=== PATIENT | female | born 1965 | race Caucasian/White ===

== ENCOUNTER 2016-06-05 21:11 | Inpatient (IN) | payer OTHER ==
--- NOTE | ~2016-06-05 | CT71 ---
[facility] A Service of [facility] RADIOLOGY TEXT RESULTS PATIENT: NILSA ODELL LOCATION: CICCU3 CICCU3-20 : 67 UNIT #: [id number] AGE: [address]: Royer Regan MD SEX: F ORDER DR: [id number] [facility] [address] [facility]. [place], [place] [address] [id number] I MR#: [id number] Acc #: [id number] NAME: NILSA ODELL. : 1965 SEX: F STUDY DATE/TIME: 06/05/2016 22:13 UNIT: CEDOF ROOM: [id number] STUDY DESCRIPTION: CT Head Wo Contrast Attending Physician: Royer Regan M.D. Ordering Physician: Walker Schmitt M.D. Primary Care Physician: Bill Garcia M.D. MEDICAL IMAGING REPORT This report is preliminary unless electronic signature is present EXAM CT brain without contrast HISTORY Loss of consciousness. Acute onset. TECHNIQUE This CT exam was performed with one or more of the following radiation dose reduction techniques: automatic exposure control, adjustment of mA and/or kV according to patient size, and iterative reconstruction. FINDINGS CT brain without contrast is partly limited by motion. No intracranial hemorrhage or mass is identified. No midline shift or ventricular dilatation. There is subtle loss of armenta-white differentiation, raising suspicion of early changes of anoxic brain injury and cerebral edema, although this is not definitive on this exam. Consider short-term followup CT brain and close clinical monitoring. IMPRESSION Although the examination is partly limited by motion, there are findings suspicious for cerebral edema and possible anoxic brain injury with apparent subtle loss of armenta-white differentiation and at least mild generalized sulcal effacement. No intracranial hemorrhage is identified. Dictated by... Larry Manley M.D. THIS IS AN ELECTRONICALLY VERIFIED REPORT Larry Manley M.D. at 06/07/2016 12:06 AM DFL/radha [facility] A Service [facility] RADIOLOGY TEXT RESULTS PATIENT: NILSA ODELL LOCATION: CICCU3 CICCU3-20 : 67 UNIT #: [id number] AGE: [address]: Royer Regan MD SEX: F ORDER DR: TD: 06/06/2016 01:32 JOB #: [id number] MEDICAL IMAGING REPORT COPY
--- NOTE | ~2016-06-05 | CO ---
Unit #: [id number] #: [id number] Patient: NILSA ODELL [id number] [address] [place], [place] [address] [id number] I MR#: [id number] NAME: NILSA ODELL. ROOM: [facility] Age: 50 Sex: F Admission Date: 06/05/2016 : 1965 Attending Physician: Royer Regan M.D. Primary Care Physician: Bill Garcia M.D. CONSULTATION REPORT REASON FOR CONSULTATION Intensive care unit management. HISTORY OF PRESENT ILLNESS This is a 50-year-old female with past medical history significant for hypertension and recently diagnosed with congestive heart failure who presented to the emergency room as a cardiac arrest. Per daughter who is at bedside, she stated that she was with her mom watching TV when all of a sudden her mom started making weird noises and sounds and she was gasping for air. The daughter immediately called EMS who advised her to put her mom on the floor and start CPR. The daughter stated that CPR was initiated immediately until EMS arrived. EMS was there is about ten minutes and then the patient was found to be in a V-tach arrest. The patient was shocked, to my knowledge twice and resuscitated and arrived and she was admitted to our emergency room where she was resuscitated for about ten minutes. The patient, currently, is completely unresponsive. No painful stimuli, no gag or cough reflex. Daughter stated that the patient was at [place] two days ago for some palpitations and she was placed on holter monitor. Everything was fine, per report. The patient isn't on oxygen or CPAP at home. She takes only some blood pressure medicine and anxiety medicine. PAST MEDICAL HISTORY 1. Congestive heart failure. 2. Hypertension. 3. Anxiety. 4. Depression. 5. Morbid obesity. PAST SURGICAL HISTORY Unavailable. SOCIAL HISTORY The patient doesn't smoke, no history of alcohol or drug abuse. ALLERGIES No known drug allergies. FAMILY HISTORY Noncontributory. Unit #: [id number] #: [id number] Patient: NILSA ODELL REVIEW OF SYSTEMS Unable to obtain from the patient. PHYSICAL EXAMINATION GENERAL: The patient is very obese, on the vent. HEENT: Atraumatic and normocephalic. RICHA. Extraocular muscles are intact. NECK: Supple. No jugular venous distention. No lymphadenopathy. CHEST: Decreased breath sounds bilaterally. HEART: S1 and S2. No murmurs, gallops, or rubs. ABDOMEN: Soft and nontender. Bowel sounds are positive. No hepatosplenomegaly. EXTREMITIES: No edema or cyanosis. SKIN: No rashes. [employer]: The patient is on the vent, off sedation, she is completely unresponsive even to painful stimuli. DIAGNOSTIC STUDIES Labs and other tests are unavailable at this point, as the patient is still in the early workup by the emergency room physician. ASSESSMENT 1. Acute hypoxic respiratory failure. 2. Status post V-tach arrest. 3. Rule out anoxic brain injury. 4. Morbid obesity. 5. Shock. PLAN 1. The patient is critical and will be continued on the vent. 2. Stat CT head to rule out anoxic brain injury. 3. Continue IV pressors and IV fluids pending lactic acid and other labs. 4. If CT head is negative for anoxic brain injury the patient will be a candidate for hypothermia protocol. 5. Lovenox full treatment dose pending cardiac evaluation. 6. GI prophylaxis. Critical care time spent on this patient was 45 minutes. Dictated by... Juan J Hawthorne M.D. EA/nicky TD: 06/06/2016 15:05 JOB #: [id number] Unit #: [id number] #: [id number] Patient: NILSA ODELL CONSULTATION REPORT X JUAN J ALTAMIRANO MD CONSULTATION REPORT
--- NOTE | ~2016-06-05 | EKG ---
PATIENT: NILSA ODELL UNIT #: [id number] Ventricular Rate: 129 BPM Atrial Rate: 129 BPM P-R Interval: 166 ms QRS Duration: 104 ms Q-T Interval: 340 ms QTC Calculation(Bezet): 498 ms P Ethel: 14 degrees Calculated R Ethel: -34 degrees Calculated T Ethel: -139 degrees Diagnosis Line: Sinus tachycardia Diagnosis Line: Left axis deviation Diagnosis Line: Marked ST abnormality, possible anterolateral Diagnosis Line: subendocardial injury Diagnosis Line: Abnormal ECG Diagnosis Line: No previous ECGs available Diagnosis Line: Confirmed by BASSEM RESTREPO MD ([id number]) on Diagnosis Line: 06/06/2016 10:50:56 PM INTERPRETING MD: JANEY
--- NOTE | ~2016-06-05 | HP ---
Unit #: [id number] #: [id number] Patient: NILSA ODELL [id number] [address] [place], [place] [address] [id number] I MR#: [id number] NAME: NILSA ODELL. ROOM: [facility] Age: 50 Sex: F Admission Date: 06/05/2016 : 1965 Attending Physician: Royer Regan M.D. Primary Care Physician: Bill Garcia M.D. HISTORY AND PHYSICAL CHIEF COMPLAINT Cardiopulmonary arrest. HISTORY OF PRESENT ILLNESS This is a 50-year-old female with a past medical history of hypertension, history of recently diagnosed congestive heart failure. She, also, two days ago she had a visit to [place] for palpitations. She was sitting with her daughter watching TV when all of a sudden she started gasping for air and become unresponsive. Family started CPR and family called the EMS. On arrival of EMS she was found to be in V-tach and V-fib. She was given cardioversion, started on oxygen and amiodarone, and eventually she got pulse and intubated and brought to the emergency room. She is on the vent and then on Levophed. PAST MEDICAL HISTORY 1. History of hypertension. 2. History of recently diagnosed congestive heart failure. 3. History of palpitations. PAST SURGICAL HISTORY Unknown. HOME MEDICATIONS Does not know the home medications. ALLERGIES Information not available at this time. PHYSICAL EXAMINATION GENERAL: Middle-aged female who is intubated on the vent. She is alert, awake, and oriented x3, comfortable, not in any distress. VITAL SIGNS: Current vitals are the following, heart rate 101, respiratory rate 20, and blood pressure 120/78. LUNGS: Clear to auscultation. HEART: S1 and S2. Regular rate and rhythm. ABDOMEN: Soft, obese. EXTREMITIES: Inspection normal. No cyanosis. No clubbing. No edema. DIAGNOSTIC STUDIES LABORATORY: Laboratory workup is the following, sodium 138, potassium 4.4, chloride 105, glucose 266, BUN 12, creatinine 1 and LFT within normal limits. Magnesium 2.4, BNP is 147, INR is 1. CBC, white count 16.8, hemoglobin 11.4, hematocrit 36, platelets 351. Unit #: [id number] #: [id number] Patient: NILSA ODELL IMAGING: Chest x-ray negative infiltrate. CT head shows cerebral edema, possible anoxic brain injury. ASSESSMENT/PLAN 1. Cardiopulmonary arrest. 2. Anoxic brain injury. Will admit the patient to intensive care unit, pulmonary department already seen the patient. The patient will be started on Zosyn, Protonix, Levophed drip to keep the blood pressure more than 65, mean artery pressure. 3. History of hypertension. 4. History of recently diagnosed congestive heart failure. 5. History of recent visit to [place] for palpitations. 6. DVT prophylaxis on Lovenox. 7. Poor prognosis. Dictated by Alfredo Herman TD: 06/06/2016 08:25 JOB #: [id number] HISTORY AND PHYSICAL X X HISTORY AND PHYSICAL
--- NOTE | ~2016-06-05 | CR72 ---
[facility] A Service of [facility] RADIOLOGY TEXT RESULTS PATIENT: NILSA DOELL LOCATION: [facility] : 67 UNIT #: [id number] AGE: [address]: Royer Regan MD SEX: F ORDER DR: [id number] [facility] [address] [facility]. [place], [place] [address] [id number] I MR#: [id number] Acc #: [id number] NAME: NILSA ODELL : 1965 SEX: F STUDY DATE/TIME: 06/05/2016 21:58 UNIT: [facility] ROOM: [id number] STUDY DESCRIPTION: CR Chest Single View Portable Attending Physician: Royer Regan M.D. Ordering Physician: Walker Schmitt M.D. Primary Care Physician: Bill Garcia M.D. MEDICAL IMAGING REPORT This report is preliminary unless electronic signature is present EXAM Portable chest HISTORY Cardiopulmonary arrest. FINDINGS ETT tip is 2 cm above the haley. Low lung volumes. Cardiac size and pulmonary vascularity are likely within normal limits. Gaseous distension of the partly visualized stomach in the left upper quadrant. No infiltrates or effusions are identified. IMPRESSION 1. ETT tip is 2 cm above the haley. 2. Low lung volumes accentuate the cardiac size, but no pulmonary infiltrates are identified. No gaseous distension of the partly visualized stomach. Dictated by... Larry Manley M.D. THIS IS AN ELECTRONICALLY VERIFIED REPORT Larry Manley M.D. at 06/07/2016 12:06 AM KEERTHI/radha TD: 06/06/2016 00:57 JOB #: [id number] MEDICAL IMAGING REPORT COPY
--- NOTE | ~2016-06-05 | CR72 ---
[facility] A Service of [facility] & [facility] RADIOLOGY TEXT RESULTS PATIENT: NILSA ODELL LOCATION: [address]-20 : [birth year] UNIT #: [id number] AGE: [address]: Royer Regan MD SEX: F ORDER DR: [id number] [facility] [address] [facility]. [place], [place] [address] [id number] I MR#: [id number] Acc #: [id number] NAME: NILSA ODELL : 1965 SEX: F STUDY DATE/TIME: 06/06/2016 5:15 UNIT: [facility] ROOM: [facility] STUDY DESCRIPTION: CR Chest Single View Portable Attending Physician: Royer Regan M.D. Ordering Physician: Raymond Hawthorne M.D. Primary Care Physician: Bill Garcia M.D. MEDICAL IMAGING REPORT This report is preliminary unless electronic signature is present EXAM AP portable chest 06/06/2016 HISTORY Patient on ventilator. Status post reported cardiac arrest with resuscitation. Follow up cardiopulmonary status. TECHNIQUE AP portable chest x-ray. FINDINGS Endotracheal tube is in good position in the mid thoracic trachea. Mild cardiomegaly. The lungs are clear, there is no visible pleural effusion or pneumothorax. Air distended stomach beneath the left hemidiaphragm. No significant change since yesterday. IMPRESSION Stable portable chest radiograph, unchanged since yesterday. ETT remains in good position. Dictated by... Jorge A Nieves M.D. THIS IS AN ELECTRONICALLY VERIFIED REPORT Jorge A Nieves M.D. at 06/06/2016 3:06 PM CRISTINA/krystina TD: 06/06/2016 12:07 JOB #: [id number] MEDICAL IMAGING REPORT COPY
--- NOTE | ~2016-06-05 | DS ---
Unit #: [id number] #: [id number] Patient: NILSA GROVER [id number] [address] [place], [place] [address] [id number] I MR#: [id number] NAME: NILSA GROVER. ROOM: [facility] Age: 50 Sex: F Admission Date: 06/05/2016 : 1965 Discharge Date: 06/06/2016 Attending Physician: Royer Regan M.D. Primary Care Physician: Bill Garcia M.D. DISCHARGE SUMMARY PRINCIPAL DIAGNOSES 1. Severe anoxic brain injury with associated brain . 2. Cardiopulmonary arrest secondary to ventricular fibrillation. 3. Sepsis secondary to right-sided aspiration pneumonia. 4. Acute systolic congestive heart failure with ejection fraction of 10%. 5. Acute kidney injury, prerenal. 6. Non-anion gap metabolic acidosis. 7. High anion gap metabolic acidosis, likely secondary to lactic acidosis. 8. Hyperglycemia. 9. Depression. 10. Obesity. CONSULTANTS 1. Dr. Hawthorne, pulmonology. 2. Dr. Rosenbaum, cardiology. DIAGNOSTIC STUDIES CARDIOVASCULAR: Two-dimensional echocardiogram with reports of ejection fraction of approximately 10% per verbal report. IMAGING: Chest x-ray on June 06, 2016 with right-sided infiltrates and edema. CT scan of the head without contrast on June 05, 2016 with loss of armenta-white matter differentiation and associated cerebral edema. Chest x-ray on June 05, 2016 without evidence of infiltrate. CLINICAL HISTORY AND HOSPITAL COURSE Ms. Grover was a 50-year-old female brought to the emergency department after witnessed arrest at home. Please refer to H and P for further details. Per ER records, the patient was found to be in ventricular fibrillation upon EMS arrival and received defibrillation x2 in the field, in addition to epinephrine x5. The patient remained in PEA upon presentation to our emergency department, and it was approximately 15-20 minutes before spontaneous pulse was obtained. The patient was admitted to the ICU. Dr. Rosenbaum was consulted regarding the patient's cardiac status. Initial troponin was elevated at 16 and at last review was 55. She was placed on appropriate Lovenox and aspirin therapy. Unit #: [id number] #: [id number] Patient: NILSA GROVER Dr. Hawthorne was consulted regarding the patient's critical status and ventilatory management. The patient became hypoxic despite maximal support on the ventilator. The patient, neurologically, had significant signs of brain , all of which was discussed with several family members on more than one occasion. I did discuss with them the risk of brain stem herniation, and at this point family opted for DNR status. The patient's family had hoped to participate with [facility]AS, but unfortunately, the patient went into asystole and on June 06, 2016 at 10:39 in the morning. Dictated by... Judith Ellsworth M.D. JAI/cee TD: 06/07/2016 10:08 JOB #: [id number] DISCHARGE SUMMARY X Judith Ellsworth MD X DISCHARGE SUMMARY
--- NOTE | ~2016-06-05 | CO ---
Unit #: [id number] #: [id number] Patient: NILSA ODELL [id number] [facility] [address] [facility]. [place], [place] [address] [id number] I MR#: [id number] NAME: NILSA ODELL. ROOM: [facility] Age: 50 Sex: F Admission Date: 06/05/2016 : 1965 Attending Physician: Royer Regan M.D. Primary Care Physician: Bill Garcia M.D. Consultation Date: 06/06/2016 CONSULTATION REPORT CONSULT REQUESTING PHYSICIAN Per HIPS Dr. Adams. HISTORY OF PRESENT ILLNESS This is a 50-year-old female, brought into [facility] ER with PEA and cardiopulmonary arrest. She was at home just watching TV with her daughter and gasped for breath and then just fell over. CPR was started at home and EMS was called. On 05/12/2016, she was admitted to [facility] with some apparently for CHF; however, her complaints were left arm numbness and tingling and some palpitations and on chart review, maybe even some chest pain. A complete workup was done at [facility] including carotid Dopplers, MRI, stress test, chest x-ray, and laboratory work, also CT of the head, chest x-ray, and an echocardiogram. She has a history of COPD, hypertension, cardiomyopathy, fibromyalgia, obstructive sleep apnea. Upon chart review at [facility] on 05/12/2016, she presented to the emergency room with complaints that she was at home and felt funny with left-sided numbness and tingling. Initially, no chest pain or shortness of breath, but she did develop later on band-like chest pain, which started in her head and neck followed by tingling down her left side of her body. No nausea, no vomiting. CT of the head was unremarkable. The MRI of the brain was negative. Troponins were also negative. She had stress test and a 2D echocardiogram. She was coded at home and by EMS on the way into the emergency room at [facility] about 40 minutes in both the emergency room and when she arrived to the unit. She was seen and examined in the ICU. Medical record review and past medical history was obtained from interviewing her , who was at bedside. Apparently, she has past medical history also of some psychiatric problems and was admitted status post a self-induced drug overdose to on 08/02/2003. Recent cardiac testing includes bilateral carotid Dopplers on 05/13/2016 showed bilateral internal carotid arteries with plaque less than 50% stenosis, bilateral vertebral arteries with antegrade flow. Technically difficult study due to body habitus. Chest x-ray on 05/12/2016, the cardiomediastinal silhouette is normal. The lungs are clear. There was no pleural effusion or pneumothorax. No evidence of acute cardiopulmonary abnormality. Apparently, in addition to 2D echocardiogram, carotid duplex ultrasound, EKG, and a stress test were done on 05/13/2016, and all studies have been unremarkable and she was discharged from [facility] with instructions to take a full strength aspirin and start Unit #: [id number] #: [id number] Patient: NILSA ODELL Pravachol 20 mg daily. She was also told to stop taking Xanax, Topamax, and Norflex. Her tells me that she was told that she needed to wear Holter monitor for 24 hours, but she follows with a [facility] physician, who said she did not need that. So, the Holter monitor was cancelled at time. FAMILY HISTORY Apparently, her is unaware of any cardiovascular problems in her family. Her sister apparently has breast cancer. Parents are both of old age. SOCIAL HISTORY She smokes one half to one pack a day. denies any illicit drug use or any alcohol use. HOME MEDICATIONS From reviewing [facility] note from 05/12/2016, apparently her home meds include albuterol inhaler two puffs as needed; Xanax 1 mg by mouth b.i.d., which was discontinued; amitriptyline 50 mg by mouth nightly; BuSpar 10 mg tablets t.i.d.; Excedrin Migraine as needed; Celexa 20 mg daily; Flexeril 10 mg t.i.d.; Voltaren 75 mg b.i.d.; Prozac 20 mg t.i.d.; Mobic 15 mg daily; Toprol-XL 25 mg daily; naproxen 500 mg b.i.d.; Pamelor (Nortriptyline) 75 mg capsule daily at night; Prilosec 20 mg daily; prazosin 1 mg at night; and Topamax 50 mg b.i.d., which was discontinued. ALLERGIES Include codeine, clarithromycin, Vioxx, Biaxin, and Arthrotec. REVIEW OF SYSTEMS Unable to be obtained as she is an anoxic state. PHYSICAL EXAMINATION GENERAL: She was examined in ICU, where she is unresponsive and on a ventilator. She is a obese female, appears stated age. VITAL SIGNS: Include temperature 102.2, heart rate 150, respirations 30, O2 sat on a ventilator 99%, blood pressure is 102/100. She weighs 137 kilograms. Admission weight was 290 pounds, which is significantly up from the last admission, where she was 243. HEENT: Head is normocephalic and atraumatic. She has moist mucosal membranes. NECK: Obese. Slight bruit heard on the left. No JVD. CHEST: Shows slight bilateral rhonchi with some few rales to the right base only. CARDIOVASCULAR: She is in tachycardic rate. Heart size is normal. Heart sounds are normal. No murmurs, gallop, or rubs appreciated. ABDOMEN: She is soft, but mildly distended and obese, nontender. No masses appreciated. Positive bowel sounds. SKIN: No rashes, ulcers, or wounds. EXTREMITIES: Trace edema to bilateral lower extremities and bilateral upper extremities. Very weak pulses. NEUROLOGIC: She is unresponsive at this time. DIAGNOSTIC STUDIES IMAGING STUDIES: CT of the head on 06/05/2016; findings are suspicious for cerebral edema, possible anoxic brain injury with apparent cerebral loss of armenta-white differentiation and at least mild generalized sulcal effacement. No intracranial hemorrhage is seen. Chest x-ray on 06/05/2016, ET tip was 2 cm above the haley, low lung volumes accentuate Unit #: [id number] #: [id number] Patient: NILSA ODELL the cardiac size, but no pulmonary infiltrates were identified. No gaseous distension, no partially visualized stomach. CARDIOVASCULAR STUDIES: EKG; sinus tachycardia, minimal voltage criteria for LVH seen. Nonspecific ST depression in anterolateral leads were noted. LABORATORY RESULTS: Includes sodium 138, potassium 4.0, chloride 108, CO2 of 19, BUN is 17, creatinine 1.3, and glucose is 239. AST 108, ALT is 60. Troponin 16.24. BNP 147. TSH 1.58. Tox screen was completely negative other than positive for TCA. WBC 30.8, hemoglobin 12.3, hematocrit 37.9, platelet count 441. Troponin in the ER at point of care was 13.6 and CK-MB at point of care was 80. PT was 10, INR is 1. pCO2 of 27, PO2 of 199, pH is 7.414. ASSESSMENT 1. Status post resuscitated cardiac arrest. 2. Anoxic brain injury. 3. Possible acute myocardial infarction to the anterior wall. 4. History of anxiety and depression. 5. History of hypertension. 6. History of suicidal attempts in 2003. 7. History of fibromyalgia. 8. Morbid obesity. 9. Chronic obstructive pulmonary disease. 10. Tobacco abuse. PLAN Start her on aspirin, and Plavix. Give a dose of Lasix, nitro paste 0.[address] a Dobhoff tube for medication administration. We are going to give Lovenox 1 mg/kg subcu b.i.d. Her prognosis is guarded and will depend on the recovery of her central nervous system function. I discussed code status with her , who wants to wait and let her daughter decide. We will continue to follow her through her hospitalization. Thank you for this consult. Dictated by... Prema Puente APRN for Alfredo Villa TD: 06/06/2016 12:25 JOB #: [id number] CONSULTATION REPORT X X CONSULTATION REPORT
--- NOTE | ~2016-06-05 | EKG ---
PATIENT: NILSA ODELL UNIT #: [id number] Ventricular Rate: 144 BPM Atrial Rate: 144 BPM P-R Interval: 136 ms QRS Duration: 88 ms Q-T Interval: 274 ms QTC Calculation(Bezet): 424 ms P [place]: 71 degrees Calculated R [place]: -20 degrees Calculated T [place]: 36 degrees Diagnosis Line: Sinus tachycardia Diagnosis Line: Minimal voltage criteria for LVH, may be normal Diagnosis Line: variant Diagnosis Line: Nonspecific ST abnormality Diagnosis Line: Abnormal ECG Diagnosis Line: When compared with ECG of 05-JUN-2016 20:24, Diagnosis Line: (unconfirmed) Diagnosis Line: ST no longer depressed in Anterior leads Diagnosis Line: T wave inversion no longer evident in Inferior Diagnosis Line: leads Diagnosis Line: T wave inversion no longer evident in Diagnosis Line: Anterolateral leads Diagnosis Line: Confirmed by BASSEM RESTREPO MD ([id number]) on Diagnosis Line: 06/06/2016 10:54:41 PM INTERPRETING MD: JANEY
[2016-06-05 20:55] LABS: ARTERIAL BLOOD GAS ART SITE LEFT BRACHIAL; ARTERIAL BLOOD GAS CARBOXY HB 3.7 %sat (0.0-9.0); ARTERIAL BLOOD GAS DELIVERY VENT; ARTERIAL BLOOD GAS HCO3 17.3 mmol/L; ARTERIAL BLOOD GAS MET HB 0.6 %sat (0.0-2.0); ARTERIAL BLOOD GAS PCO2 56.9 mmHg (35.0-45.0); ARTERIAL BLOOD GAS PO2 80.3 mmHg (80.0-100); ARTERIAL BLOOD GAS VENT MODE AC; ARTERIAL BLOOD GAS pH 7.091 (7.350-7.450); ARTERIAL DRAW? YES
[2016-06-05 21:34] LABS: BASOPHIL# 0.1 X10e3 (0-0.3); BASOPHIL% 0.5 % (0-2.5); DIFF IND YES; EOSINOPHIL# 0.3 X10e3 (0-0.7); EOSINOPHIL% 1.7 % (0.0-7.0); HEMATOCRIT 36.9 % (35.0-45.0); HEMOGLOBIN 11.4 gm/dL (12.0-16.0); LYMPHOCYTE# 5.8 X10e3 (1.0-3.5); LYMPHOCYTE% 34.5 % (17.0-45.0); MEAN CELL VOLUME 87.3 FL (83-96); MEAN CORPUSCULAR HGB CONC 30.9 g/dL (30-36); MEAN PLATELET VOLUME 8.6 FL (6.5-11.5); MONOCYTE# 0.4 X10e3 (0-1.0); MONOCYTE% 2.7 % (3.0-12.0); NEUTROPHIL# 10.1 X10e3 (1.5-7.1); NEUTROPHIL% 60.6 % (40-75); PARTIAL THROMBOPLASTIN TIME 24.7 SECONDS (23.5-31.3); PLATELET COUNT 351 X10e3 (140-420); RED BLOOD COUNT 4.22 X10e (3.90-5.30); RED CELL DISTRIBUTION WIDTH 16.7 % (11.0-15.5); WHITE BLOOD COUNT 16.8 X10e3 (4.0-10.5)
[2016-06-05 21:59] LABS: ALBUMIN SERUM 3.5 g/dL (3.5-5.0); ALKALINE PHOSPHATASE 87 U/L (32-92); ALT (SGPT) 60 U/L (10-40); AST (SGOT) 108 U/L (10-42); BLOOD UREA NITROGEN 12 mg/dL (9-23); CARBON DIOXIDE 18 mmol/L (22-31); CHLORIDE 105 mmol/L (100-111); GLOM FILT RATE Estimated ABOVE60 mL/min (>60); GLUCOSE FASTING 266 mg/dL (70-110); MAGNESIUM 2.4 mg/dL (1.6-3.0); POTASSIUM 4.4 mmol/L (3.5-5.1); PROTEIN TOTAL SERUM 6.3 g/dL (6.0-8.3); SALICYLATE <4.0 mg/dL; SODIUM 138 mmol/L (135-145)
[2016-06-05 22:05] LABS: ACETAMINOPHEN <10 ug/mL; ALCOHOL BLOOD <5 mg/dL (0); BILIRUBIN, DIRECT 0.1 mg/dL (0.0-0.2); BILIRUBIN,TOTAL 0.1 mg/dL (0.2-2.0)
[2016-06-05 22:19] LABS: ARTERIAL BLD GAS O2 SATURATION 98.1 % (90.0-100.0); ARTERIAL BLOOD GAS CARBOXY HB 1.3 %sat (0.0-9.0); ARTERIAL BLOOD GAS HCO3 19.1 mmol/L; ARTERIAL BLOOD GAS MET HB 0.8 %sat (0.0-2.0); ARTERIAL BLOOD GAS PCO2 33.5 mmHg (35.0-45.0); ARTERIAL BLOOD GAS pH 7.365 (7.350-7.450)
[2016-06-05 22:25] LABS: ARTERIAL BLOOD GAS ALLEN TEST NORMAL; ARTERIAL BLOOD GAS ART SITE LEFT RADIAL; ARTERIAL BLOOD GAS DELIVERY VENT; ARTERIAL BLOOD GAS VENT MODE AC; ARTERIAL DRAW? YES
[2016-06-05 22:55] LABS: PLATELET ESTIMATE NORMAL (NORMAL)
[2016-06-05 22:56] LABS: ANISOCYTOSIS SL
[2016-06-05 22:57] LABS: AMPHETAMINE NEG (NEG); BARBITURATES NEG (NEG); BENZODIAZEPINES NEG (NEG); COCAINE NEG (NEG); MARIJUANA NEG (NEG); OPIATES NEG (NEG); TRICYCLIC ANTIDEPRESSANTS POS (NEG); U METHADONE NEG (NEG)
[2016-06-06 00:31] LABS: POC - CKMB 11.9 ng/mL (0.0-7.9); POC - TROPONIN 0.2 ng/mL (<=0.05)
[2016-06-06 00:41] LABS: POC - TROPONIN 13.6 ng/mL (<=0.05)
[2016-06-06 03:07] LABS: BASOPHIL% 0.1 % (0-2.5); EOSINOPHIL% 0.1 % (0.0-7.0); HEMATOCRIT 37.9 % (35.0-45.0); HEMOGLOBIN 12.3 gm/dL (12.0-16.0); LYMPHOCYTE# 1.8 X10e3 (1.0-3.5); LYMPHOCYTE% 5.9 % (17.0-45.0); MEAN CELL VOLUME 85.2 FL (83-96); MEAN CORPUSCULAR HEMOGLOBIN 27.7 PG (28-34); MEAN CORPUSCULAR HGB CONC 32.6 g/dL (30-36); MEAN PLATELET VOLUME 8.2 FL (6.5-11.5); MONOCYTE# 1.3 X10e3 (0-1.0); MONOCYTE% 4.1 % (3.0-12.0); NEUTROPHIL# 27.7 X10e3 (1.5-7.1); NEUTROPHIL% 89.8 % (40-75); PLATELET COUNT 441 X10e3 (140-420); RED BLOOD COUNT 4.45 X10e (3.90-5.30); RED CELL DISTRIBUTION WIDTH 16.2 % (11.0-15.5)
[2016-06-06 03:09] LABS: DIFF IND NO; WHITE BLOOD COUNT 30.8 X10e3 (4.0-10.5)
[2016-06-06 03:28] LABS: BUN/CREATININE RATIO 13.07; CREATININE SERUM 1.3 mg/dL (0.6-1.4); GLOM FILT RATE Estimated 46.3 mL/min (>60)
[2016-06-06 04:13] LABS: ARTERIAL BLD GAS O2 SATURATION 98.8 % (90.0-100.0); ARTERIAL BLOOD GAS CARBOXY HB 0.3 %sat (0.0-9.0); ARTERIAL BLOOD GAS HCO3 17.3 mmol/L; ARTERIAL BLOOD GAS MET HB 0.9 %sat (0.0-2.0); ARTERIAL BLOOD GAS pH 7.414 (7.350-7.450)
[2016-06-06 04:23] LABS: ARTERIAL BLOOD GAS ALLEN TEST NORMAL; ARTERIAL BLOOD GAS ART SITE LEFT RADIAL; ARTERIAL BLOOD GAS DELIVERY VENT; ARTERIAL BLOOD GAS VENT MODE AC; ARTERIAL DRAW? YES
[2016-06-09 01:55] LABS: HA AB IGM (HEPPAN) Nonreactive (Nonreactive); HB CORE AB IGM (HEPPAN) Nonreactive (Nonreactive); HB S AG (HEPPAN) Nonreactive (Nonreactive); HEP C AB (HEPPAN) Nonreactive (Nonreactive); HEP C AB SIGNAL TO CUTOFF 0.02 ratio (<1.00)
== END 2016-06-06 10:37 | disposition expired ==
LOC: CED 21:11 → CEDOF 23:00 → CICCU3 06-06 01:52
PROVIDERS: Emergency Medicine; Internal Medicine; Internal Medicine Pulmonary Disease
PROC: 5A1935Z Respiratory Ventilation, Less than 24 Consecutive Hours (ICD-10-PCS; principal; 2016-06-05)
PROC: 05H333Z Insertion of Infusion Device into Right Innominate Vein, Percutaneous Approach (ICD-10-PCS; 2016-06-05)
PROC: B54MZZA Ultrasonography of Right Upper Extremity Veins, Guidance (ICD-10-PCS; 2016-06-05)
PROC: B24BYZZ Ultrasonography of Heart with Aorta using Other Contrast (ICD-10-PCS; 2016-06-06)
DX: I47.2 Ventricular tachycardia (principal); J69.0 Pneumonitis due to inhalation of food and vomit; I21.09 ST elevation (STEMI) myocardial infarction involving other coronary artery of anterior wall; G93.6 Cerebral edema; I46.9 Cardiac arrest, cause unspecified; J96.01 Acute respiratory failure with hypoxia; A41.9 Sepsis, unspecified organism; G93.1 Anoxic brain damage, not elsewhere classified; R65.21 Severe sepsis with septic shock; I50.21 Acute systolic (congestive) heart failure; N17.9 Acute kidney failure, unspecified; E87.2 Acidosis; Z68.43 Body mass index [BMI] 50.0-59.9, adult; F41.9 Anxiety disorder, unspecified; F32.9 Major depressive disorder, single episode, unspecified; M79.7 Fibromyalgia; E66.01 Morbid (severe) obesity due to excess calories; J44.9 Chronic obstructive pulmonary disease, unspecified; F17.210 Nicotine dependence, cigarettes, uncomplicated; I11.0 Hypertensive heart disease with heart failure; R73.9 Hyperglycemia, unspecified; Z66 Do not resuscitate
CPT/HCPCS: 36556; 36600; 70450; 71010; 80048; 80074; 80076; 80307; 82553; 82803; 82947; 83735; 83880; 84443; 84484; 85025; 85610; 85730; 87806; 92950; 93005; 93306; 94002; 94003; 94640; 94761; 96361; 96374; 99291; C9113; G0480; J1650; J1940; J1953; J2543